=== PATIENT | female | born 1930 | race Caucasian/White ===

== ENCOUNTER 2017-12-29 13:05 | Outpatient (RCR) | payer MEDICARE | END 2018-01-14 | disposition home or self-care (01) | LOC: ONC 13:05 | PROVIDERS: ATTEND Radiology Radiation Oncology | DX: C44.722 Squamous cell carcinoma of skin of right lower limb, including hip (principal); C44.729 Squamous cell carcinoma of skin of left lower limb, including hip | CPT/HCPCS: 99212; 99213 ==